=== PATIENT | female | born 1970 | race Two or more races ===

== ENCOUNTER 2022-07-20 11:04 | Emergency (ER) | payer SELFPAY ==
[~2022-07-20] VITALS: Ht 152.4 cm; Wt 71.0 kg
[2022-07-20 11:36] VITALS: BP 141/62
[2022-07-20] MEDS ORDERED: NAPR500T31 PO (12:03)
== END 2022-07-20 12:11 | disposition home or self-care (01) ==
LOC: ER 11:04
DX: S62.667A Nondisplaced fracture of distal phalanx of left little finger, initial encounter for closed fracture (principal); X58.XXXA Exposure to other specified factors, initial encounter; Y93.89 Activity, other specified; Y92.89 Other specified places as the place of occurrence of the external cause; Y99.8 Other external cause status
CPT/HCPCS: 29130; 73130